=== PATIENT | female | born 1975 | race Caucasian/White ===

== ENCOUNTER 2018-05-20 18:46 | Emergency (ER) | END 2018-05-20 23:45 | disposition home or self-care (01) ==

== ENCOUNTER 2019-03-12 08:25 | Emergency (ER) | payer MEDICAID ==
[~2019-03-12] VITALS: Wt 65.0 kg
[~2019-03-12 08:25] MED LIST: IBUP800T48 PO
[2019-03-12] MEDS ORDERED: KETOROLAC 15 MG INJ IV STA (08:52)
[2019-03-12] MEDS ORDERED: ALPRAZOLAM 0.25 MG TAB PO ONE (09:00)
[2019-03-12] MEDS ORDERED: SOD CHLORIDE 0.9% 500 ML IV STA (09:07)
--- NOTE | 2019-03-12 09:09 | ERD ---
ER Documentation Chief Complaint Chief Complaint BODY ACHES,CHILLS , NO APETITE X 4 DAYS HPI This is a 43-year-old woman with multiple complaints including anxiety, headache, full body aches, nonproductive cough and congestion. She was tearful in the ER and states that whenever she becomes anxious she also becomes tearful. She denies chest pain, no fevers or chills, no dysuria, no abdominal pain, no suicidal homicidal ideation, no weight loss, no complaints of vomiting or diarrhea. ROS All systems reviewed and are negative except as per history of present illness. Medications Home Meds Active Scripts Alprazolam* (Xanax*) 0.25 Mg Tablet, 0.25 MG PO TID PRN for ANXIETY, #12 TAB Prov:GALINA HAIR MD 03/12/19 Ibuprofen* (Motrin*) 600 Mg Tab, 600 MG PO Q8 PRN for PAIN AND/OR INFLAMMATION, #30 TAB Prov:GALINA HAIR MD 03/12/19 Cephalexin* (Keflex*) 500 Mg Capsule, 500 MG PO QID for 5 Days, CAP Prov:GALINA HAIR MD 03/12/19 Ibuprofen* (Motrin*) 800 Mg Tab, 800 MG PO Q6H PRN for PAIN AND OR ELEVATED TEMP, #30 TAB Prov:RAUL DENSON MD 05/20/18 Allergies Allergies: Coded Allergies: No Known Allergy (Unverified , 05/20/18) PMhx/Soc Anxiety Hx Miscellaneous Medical Probl: Yes (dm2) Hx Alcohol Use: No Hx Substance Use: No Hx Tobacco Use: No FmHx Family History: No diabetes Physical Exam Vitals Vital Signs Date Temp Pulse Resp B/P (MAP) Pulse Ox O2 O2 Flow FiO2 Time Delivery Rate 03/12/19 101.1 110 18 138/78 99 08:26 (98) Physical Exam GENERAL: Well-developed, well-nourished, well-hydrated, appears anxious, afebrile HEENT: Moist mucous membranes, pink conjunctiva, no cervical spine tenderness or step-off deformities, no goiter, no jaundice or icterus, extraocular movements intact without pain. No submandibular induration, and no pharyngeal erythema NEURO: Alert and oriented 3, cranial nerves II through XII intact bilaterally, pupils equal round reactive to light, no focal deficits or facial asymmetry, sensation intact distally Strength 5/5 in upper and lower extremities bilaterally CARDIAC: Regular rate and rhythm, no murmurs rubs or gallops LUNGS: Clear bilaterally no wheezing crackles or stridor ABDOMEN: Soft nontender, no guarding, no rigidity, no rebound, no psoas sign no obturator sign. Normoactive bowel sounds SKIN: Warm and dry to touch, no abrasions, contusions, or hematomas, no lacerations, no ecchymosis, no target lesions, and without ulcers EXTREMITIES: No clubbing cyanosis or edema, calves are bilaterally symmetrical, no Homans sign, no popliteal cord sign. Distal pulses equal and bilateral PSYCH: Appears anxious Result Diagram: 03/12/1992703/12/19927 Results 24 hrs Laboratory Tests Test 03/12/19 09:17 03/12/19 09:27 03/12/19 09:28 Bedside Glucose 268 mg/dL POC Beta HCG, Qualitative NEGATIVE White Blood Count 15.8 10^3/ul Red Blood Count 4.76 10^6/ul Hemoglobin 14.5 g/dl Hematocrit 42.9 % Mean Corpuscular Volume 90.1 fl Mean Corpuscular Hemoglobin 30.5 pg Mean Corpuscular Hemoglobin Concent 33.8 g/dl Red Cell Distribution Width 11.7 % Platelet Count 249 10^3/UL Mean Platelet Volume 9.5 fl Immature Granulocytes % 0.600 % Neutrophils % 85.3 % Lymphocytes % 6.0 % Monocytes % 8.0 % Eosinophils % 0.0 % Basophils % 0.1 % Nucleated Red Blood Cells % 0.0 /100WBC Immature Granulocytes # 0.090 10^3/ul Neutrophils # 13.5 10^3/ul Lymphocytes # 1.0 10^3/ul Monocytes # 1.3 10^3/ul Eosinophils # 0.0 10^3/ul Basophils # 0.0 10^3/ul Nucleated Red Blood Cells # 0.0 10^3/ul Urine Color YELLOW Urine Clarity CLOUDY Urine pH 6.0 Urine Specific Grayling 1.027 Urine Ketones 2+ mg/dL Urine Nitrite POSITIVE mg/dL Urine Bilirubin NEGATIVE mg/dL Urine Urobilinogen 1+ mg/dL Urine Leukocyte Esterase 1+ Phyllis/ul Urine Microscopic RBC 2 /HPF Urine Microscopic WBC 60 /HPF Urine Squamous Epithelial Cells FEW /HPF Urine Mucus FEW /HPF Urine Hemoglobin 2+ mg/dL Urine Glucose 3+ mg/dL Urine Total Protein NEGATIVE mg/dl Sodium Level 139 mmol/L Potassium Level 3.9 mmol/L Chloride Level 101 mmol/L Carbon Dioxide Level 25 mmol/L Anion Gap 13 Blood Urea Nitrogen 10 mg/dl Creatinine 0.77 mg/dl Est Glomerular Filtrat Rate mL/min > 60 mL/min Glucose Level 301 mg/dl Calcium Level 8.9 mg/dl Total Bilirubin 0.8 mg/dl Direct Bilirubin 0.00 mg/dl Indirect Bilirubin 0.8 mg/dl Aspartate Amino Transf (AST/SGOT) 33 IU/L Alanine Aminotransferase (ALT/SGPT) 28 IU/L Alkaline Phosphatase 119 IU/L Total Protein 8.6 g/dl Albumin 4.4 g/dl Globulin 4.20 g/dl Albumin/Globulin Ratio 1.04 Lipase 47 U/L Current Medications Medications Dose Sig/Kike Start Time Status Last (Trade) Ordered Route PRN Stop Time Admin Dose Reason Admin Ketorolac 15 mg ONCE STAT 03/12/19 DC 03/12/19 Tromethamine IV 08:52 03/12/19 09:36 (Toradol) 08:56 Alprazolam 0.5 mg ONCE ONCE 03/12/19 DC 03/12/19 (Xanax) PO 09:00 03/12/19 09:31 09:01 Sodium 500 ml @ Q1H STAT 03/12/19 DC 03/12/19 Chloride 500 mls/hr IV 09:07 03/12/19 09:31 10:06 Ceftriaxone 50 ml @ ONCE ONCE 03/12/19 DC 03/12/19 Sodium 100 mls/hr IVPB 10:00 03/12/19 10:06 10:29 Procedures/MDM IV line was established patient was placed on engine monitor rhythm strip revealed a sinus rhythm at about 80 bpm with upright P and T waves. Patient was afebrile I administered 500 cc normal saline IV, Toradol 15 mg IV x1, alprazolam 0.5 mg p.o. CBC and electrolytes were normal, liver function test normal, test negative, urinalysis was positive for infection. I administered ceftriaxone 1 g IV x1. CBC reveals a leukocytosis of 16, electrolytes were unremarkable, blood sugar elevated at 301, liver function tests normal Differential diagnoses considered, included but not limited to acute coronary syndrome, pulmonary embolism, aortic dissection, abdominal aortic aneurysm, sepsis, stroke, meningitis, encephalitis, pneumonia, appendicitis, cholecystitis, bowel obstruction, pyelonephritis, nephrolithiasis, cystitis, as well as metabolic, hematologic, and electrolyte abnormalities. As well as abscess, cellulitis, fractures, and dislocations. Patient feels much better at this time, and vital signs are normal, symptoms have improved. I did give strict instructions to return to the ED if symptoms continue or worsen, patient will otherwise follow-up with primary care physician. Patient understood instructions and agreed to plan. Disclaimer: Inadvertent spelling and grammatical errors are likely due to EHR /dictation software use and do not reflect on the overall quality of patient care. Also, please note that the electronic time recorded on this note does not necessarily reflect the actual time of the patient encounter. Departure Diagnosis: Primary Impression: Acute URI Additional Impressions: Anxiety Body aches Acute UTI Condition: Good GALINA HAIR MD March 12, 2019 09:09
[2019-03-12] MEDS ORDERED: CEFTRIAXONE 1 GM/50 ML (PMX) 50 ML IVPB ONE (10:00)
[2019-03-12] MEDS ORDERED: CEPH-443 PO (10:31)
[2019-03-12] MEDS ORDERED: ALPR0.25 PO (10:31)
[2019-03-12] MEDS ORDERED: IBUP-1542 PO (10:31)
[2019-03-12 10:55] VITALS: BP 100/52; PULSE 98; RESP 18
== END 2019-03-12 10:56 | disposition home or self-care (01) ==
LOC: FTE 08:25
DX: J06.9 Acute upper respiratory infection, unspecified (principal); F41.9 Anxiety disorder, unspecified; R52 Pain, unspecified; N39.0 Urinary tract infection, site not specified; E11.9 Type 2 diabetes mellitus without complications
CPT/HCPCS: 36415; 80053; 81001; 81025; 82962; 83690; 85025; 96365; 96366; 96375; J0696; J1885; J7040; Z7502; Z7610